=== PATIENT | female | born 1955 | race Caucasian/White ===

== ENCOUNTER 2021-02-06 12:26 | Emergency (ER) | payer MEDICAID ==
[~2021-02-06] VITALS: Ht 160 cm; Wt 75.0 kg
[~2021-02-06 12:26] MED LIST: AMIT50TA PO; DICL50TA2 PO; LORA10CA PO; NAPR375T PO; PRED10TA PO; PREG100C PO
--- NOTE | 2021-02-06 12:57 | NUR ---
PT STATES SHE FELL WHILE AT HER DAUGH[employer]'S TRAIL[employer]; LANDED ON FLOOR. C/O PAIN TO LT WRIST RADIATING TO ELBOW. LIMITED ROM LT HAND, WRIST, ELBOW R/T PAIN. SKIN COOL, INTACT. RADIAL PULSE STRONG & REG. NO PAIN MEDS TAKEN.
[2021-02-06] MEDS ORDERED: TOPI50TA8 PO (13:33)
[2021-02-06] MEDS ORDERED: POTASSIUM (13:33)
[2021-02-06] MEDS ORDERED: HYDR25TA6 PO (13:33)
[2021-02-06] MEDS ORDERED: CALCIUM (13:33)
[2021-02-06] MEDS ORDERED: GABA600T14 PO (13:33)
[2021-02-06] MEDS ORDERED: OMEP40CA42 PO (13:33)
[2021-02-06] MEDS ORDERED: ACYC-113 PO (13:33)
[2021-02-06] MEDS ORDERED: PANT20TA4 PO (13:33)
[2021-02-06] MEDS ORDERED: LEVO25TA4 PO (13:33)
[2021-02-06] MEDS ORDERED: LOVA20TA2 PO (13:34)
--- NOTE | 2021-02-06 13:35 | NUR ---
PT STATES SHE TOOK HER USUAL NAPROXEN THIS MORNING.
[2021-02-06] MEDS ORDERED: HYDROcodone/APAP 5/325 TABLET ONE (14:10)
--- NOTE | 2021-02-06 14:14 | NUR ---
PT RESTING ON GURNEY, AWAITING XR. NORCO GIVEN PER EMAR.
--- NOTE | 2021-02-06 14:20 | NUR ---
AMBULATORY TO & FROM [facility] W/OUT INCIDENT; GAIT STEADY.
[2021-02-06] MEDS ORDERED: IBUPROFEN 600 MG TABLET PO ONE (14:30)
[2021-02-06] MEDS ORDERED: HYDROcodone/APAP 5/325 TABLET PO ONE (14:30)
--- NOTE | 2021-02-06 14:44 | NUR ---
XR AT BS
--- NOTE | 2021-02-06 15:27 | NUR ---
REPORTS MINIMAL RELIEF FROM PAIN.
--- NOTE | 2021-02-06 15:29 | NUR ---
CALLED RADIOLOGY: REPORTS STILL PENDING.
[2021-02-06 16:00] VITALS: BP 152/76
--- NOTE | 2021-02-06 16:15 | NUR ---
PT RESTING QUIETLY ON GURNEY, WATCHING TV. INFORMED PT OF DELAY IN RADIOLOGY REPORT.
--- NOTE | 2021-02-06 16:55 | NUR ---
PT STILL WAITING FOR DISPOSITION. INTERMITTENTLY USING ICE PACK ON LUE.
--- NOTE | 2021-02-06 17:05 | NUR ---
PT ENDORSED TO J CARLOS GIL RN.
--- NOTE | 2021-02-06 17:44 | NUR ---
PT REPORT FROM BREAK RN. PT CARE TO BE RESUMED.
--- NOTE | 2021-02-06 17:54 | NUR ---
EMT AT BS FOR SPLINT APPLICATION.
== END 2021-02-06 19:14 | disposition home or self-care (01) ==
LOC: ED 14:14
DX: S93.492A Sprain of other ligament of left ankle, initial encounter (principal); S52.125A Nondisplaced fracture of head of left radius, initial encounter for closed fracture; W01.0XXA Fall on same level from slipping, tripping and stumbling without subsequent striking against object, initial encounter; Y93.89 Activity, other specified; Y92.009 Unspecified place in unspecified non-institutional (private) residence as the place of occurrence of the external cause; Y99.8 Other external cause status
CPT/HCPCS: 29125; 99284